=== PATIENT | female | born 1995 | race Caucasian/White ===

== ENCOUNTER → 2019-06-28 | Emergency (ER) | payer OTHER ==
[~2019-06-28] VITALS: Ht 162.6 cm; Wt 40.8 kg
[~2019-06-28] MED LIST: KEFLEX500 MG PO; PYRIDIUM200 MG PO
--- OUTSIDE RECORDS SUMMARY | 2019-06-28 11:04 | XMS ---
PreManage Notification: GINA TORRES Security Day Care Assistant Events No recent Security Events currently on file CRITERIA MET - [facility] - Has Care Guidelines CARE PROVIDERS There are no care providers on record at this time. Rani has no Care Guidelines for this patient. Care History Medical/Surgical 02/08/2018 [facility] - PATIENT HAS AN APT TO ESTABLISH CARE WITH -PCP MATT SALES ON 02/08/18 @ 1:30. - PLEASE REFER PATIENT TO PCP OFFICE IF PATIENT IS SEEN IN THE ED FOR NON EMERGENT MEDICAL NEEDS. E.D. VISIT COUNT (12 MO.) 1 [facility] TOTAL 1 NOTE: Visits indicate total known visits. ED/UCC VISIT TRACKING (12 MO.) 06/28/2019 11:02 [facility] TYPE: Emergency COMPLAINT: - SHAKY, NAUSEA, HOT FEELING INPATIENT VISIT TRACKING (12 MO.) No inpatient visits to display in this time frame [email or web address]
--- NOTE | 2019-06-28 22:37 | EKG ---
[facility] [address] [facility] [place], [place] [address] Signed Normal sinus rhythm with sinus arrhythmia Normal ECG No previous ECGs available Confirmed by RAVINDER JEAN-BAPTISTE MD ([id number] on 06/28/2019 10:37:07 PM Electronically Signed By: RAVINDER JEAN-BAPTISTE MD 06/28/19 2237 PATIENT NAME: GINA TORRES Electrocardiogram DATE OF : [birth year] PHYSICIAN: RAVINDER JEAN-BAPTISTE MD REPORT #: [id number] REPORT IS CONFIDENTIAL AND NOT TO BE RELEASED WITHOUT AUTHORIZATION
== END ==
LOC: ED 10:59
DX: F43.9 Reaction to severe stress, unspecified (principal); F41.9 Anxiety disorder, unspecified; Z79.899 Other long term (current) drug therapy
CPT/HCPCS: 93005; 93010; 96372; 99283-25; J2060